=== PATIENT | female | born 1935 | race Caucasian/White ===

== ENCOUNTER 2017-04-04 09:32 | Inpatient (IN) | payer MEDICARE ==
[2017-04-04] MEDS ORDERED: HYDROMORPHONE HCL INJ/PF 2 MG/ML AMPULE IV ONE ×2 (10:23→12:01)
--- NOTE | 2017-04-04 11:35 | RADIOLOGY REPORT (SQ) ---
EXAM DESCRIPTION: CT PELVIS WITHOUT COMPLETED DATE/TIME: 04/04/2017 11:20 am REASON FOR STUDY: left hip pain and lumbar pain s.p fall COMPARISON: CT lumbar spine same date CT abdomen pelvis 05/13/2006 TECHNIQUE: CT scan of the pelvis performed without intravenous or oral contrast. Images reviewed wi th soft tissue and bone windows. Reconstructed coronal and sagittal MPR images reviewed. All images stored on PACS. All CT scanners at this facility use dose modulation, iterative reconstruction, and/or weight based d osing when appropriate to reduce radiation dose to as low as reasonably achievable (ALARA). [facility]: Dose Right [facility]: CareDose [facility]: Dose Right [facility]: Teradose 4D [facility]: [employer] RADIATION DOSE: CT Rad equipment meets quality standard of care and radiation dose reduction techniq ues were employed. CTDIvol: 21.9 mGy. DLP: 883 mGy-cm. mGy. LIMITATIONS: Streak artifact from right hip replacement FINDINGS: Bones are osteoporotic. On axial images 36 through 48, there are bilateral hairline nondisplaced fractures through the right and left sacral ala adjacent to the SI joints. These are also identified on coronal reconstruction i mage 68 and 69. No other pelvic fracture is identified. Old right hip replacement with old healed right intertrochanteric fracture. Incidental finding of fatty bilateral inguinal hernias, sigmoid diverticuli, and a normal size uterus with calcified fibroids. Streak artifact from right hip replacement. IMPRESSION: Bilateral acute nondisplaced hairline fractures through the right and left sacral ala, p aralleling the SI joints TECHNICAL DOCUMENTATION: JOB ID: [id number] Quality ID # [id number]: Final reports with documentation of one or more dose reduction techniques (e.g., Au tomated exposure control, adjustment of the mA and/or kV according to patient size, use of iterative reconstruction technique) 2010 [employer]- All Rights Reserved
--- NOTE | 2017-04-04 11:38 | RADIOLOGY REPORT (SQ) ---
EXAM DESCRIPTION: CT LUMBAR SPINE WITHOUT COMPLETED DATE/TIME: 04/04/2017 11:20 am REASON FOR STUDY: left hip pain and lumbar pain s.p fall COMPARISON: None. TECHNIQUE: Axial images acquired through the lumbar spine without intravenous contrast. Images revi ewed with lung, soft tissue and bone windows. Reconstructed coronal and sagittal MPR images reviewed . All images stored on PACS. All CT scanners at this facility use dose modulation, iterative reconstruction, and/or weight based d osing when appropriate to reduce radiation dose to as low as reasonably achievable (ALARA). [facility]: Dose Right [facility]: CareDose [facility]: Dose Right [facility]: Teradose 4D [facility]: [employer] RADIATION DOSE: 16 mGy. LIMITATIONS: None. FINDINGS: SEGMENTATION: Normal. No transitional anatomy. ALIGNMENT: Mild retrolisthesis of L2 over L3 VERTEBRAL BODIES: No fractures. No dislocation. No acute findings. DISCS: High-grade disc space loss of height at L1-2, L2-3, and L4-5 PEDICLES, TRANSVERSE PROCESSES: No fractures. No dislocation. No acute findings. FACETS, POSTERIOR ELEMENTS: No acute fracture. Multilevel facet arthropathy HARDWARE: None in the spine. VISUALIZED RIBS: No fractures. SOFT TISSUES: No significant or acute finding in adjacent soft tissues. OTHER: There are acute hairline nondisplaced fractures through the right and left sacral ala parallel ing the SI joints, the left fracture is best shown on coronal reconstruction image 34 series 602, the right fractures best shown on coronal reconstruction image 36 series 602. IMPRESSION: Bilateral nondisplaced sacral ala fractures. No acute fracture in the lumbar spine. Multilevel degenerative disc changes and facet arthropathy TECHNICAL DOCUMENTATION: JOB ID: [id number] Quality ID # [id number]: Final reports with documentation of one or more dose reduction techniques (e.g., Au tomated exposure control, adjustment of the mA and/or kV according to patient size, use of iterative reconstruction technique) 2010 [employer]- All Rights Reserved
--- NOTE | 2017-04-04 12:03 | ER Document Report ---
ED General - General Chief Complaint: Low Back Pain Stated Complaint: BACK PAIN Time Seen by Provider: 04/04/17 09:57 Mode of Arrival: Wheelchair Information source: Patient, Relative TRAVEL OUTSIDE OF THE [place] IN LAST 30 DAYS: No - HPI Notes: 81-year-old female presents today with complaints of acute lower back pain status post fall 1 week ago. Patient was seen by her primary care approximately 3 days ago, reports lumbar x-rays, right hip x-ray right knee x- ray was negative for any acute findings. Patient reports pain is 9 out of 10, sharp and aching. Tried [id number] ibuprofen. Was prescribed meloxicam, patient has not tried meloxicam at this time. Patient does ambulate at home with a walker. Patient did have a right hip replacement approximately 6 years ago patient does live alone. Denies fevers, chills, chest pain,palpitations, shortness of breath, dyspnea, nausea, vomiting, diarrhea, abdominal pain, hematuria,blurred vision, double vision, loss of vision, speech changes, LH, dizziness, syncope, headaches, wheezing, ST, URI, neck pain, weakness, bowel or bladder dysfunction, saddle anesthesia, numbness or tingling in bilateral upper or lower extremities equally, muscle paralysis, weakness in bilateral upper or lower extremities equally or rash. Denies IV drug use. Past Medical History - General Information source: Patient, Relative - daughter - Social History Smoking Status: Former Smoker Chew tobacco use (# tins/day): No Drug Abuse: None Family History: Reviewed & Not Pertinent Patient has suicidal ideation: No Patient has homicidal ideation: No Renal/ Medical History: Denies: Hx Peritoneal Dialysis Review of Systems - Review of Systems Constitutional: No symptoms reported EENT: No symptoms reported Cardiovascular: No symptoms reported Respiratory: No symptoms reported Gastrointestinal: No symptoms reported Genitourinary: No symptoms reported Female Genitourinary: No symptoms reported Musculoskeletal: See HPI Skin: No symptoms reported Hematologic/Lymphatic: No symptoms reported Neurological/Psychological: No symptoms reported Physical Exam - Vital signs Vitals: Temp Pulse Resp BP Pulse Ox 97.8 F 55 L 18 149/63 H 98 04/04/17 09:46 04/04/17 09:46 04/04/17 09:46 04/04/17 09:46 04/04/17 09:46 - Notes Notes: PHYSICAL EXAMINATION: GENERAL: Well-appearing, well-nourished and in no acute distress. HEAD: Atraumatic, normocephalic. EYES: Pupils equal round and reactive to light, extraocular movements intact, conjunctiva are normal. ENT: Nares patent, oropharynx clear without exudates. Moist mucous membranes. NECK: Normal range of motion, supple without lymphadenopathy LUNGS: Breath sounds clear to auscultation bilaterally and equal. No wheezes rales or rhonchi. HEART: Regular rate and rhythm without murmurs ABDOMEN: Soft, nontender, nondistended abdomen. No guarding, no rebound. No masses appreciated. Female : deferred Musculoskeletal: Normal range of motion, no pitting or edema. No cyanosis.Pain with flexion and extension at 20 degrees bilaterally. positive straight leg test. Noted pain with right hip Abduction, flexion. No pain with extension or abduction. Left hip with full APROM. DTR +2 in BLE equally. Strength 5 out of 5 both distally and proximally to bilateral lower extremities normal motor and sensory function in BLE equally. Distal pulses + 2 BLE equally. Noted paraspinal tenderness near L2 and L3. No spinal tenderness. No CVA tenderness bilaterally. Femoral pulses + 2 bilaterally and equally. No abrasions, scars, lacerations, ecchymosis of any recent trauma. NEUROLOGICAL: Cranial nerves grossly intact. Normal speech, normal gait. Normal sensory, motor exams PSYCH: Normal mood, normal affect. SKIN: Warm, Dry, normal turgor, no rashes or lesions noted. Course - Re-evaluation Re-evalutation: Consulted with hospitalist Dr. Manjinder Khan, regarding CT lumbar spine and pelvis showing a bilateral hairline sacral fractures that are nondisplaced. Patient lives alone, and is having uncontrolled pain. Will admit for pain control to the medical floor.. Informed patient and daughter that she is going to be admitted for pain control as well as obtaining services such as PT. Pain pain medication has reduced pain down to a 3 out of 10. All questions and concerns were answered by this provider. After performing a Medical Screening Examination, I estimate there is LOW risk for EXPANDING OR RUPTURED ABDOMINAL AORTIC ANEURYSM, CAUDA EQUINA SYNDROME, EPIDURAL MASS ABSCESS OR LESION(S), OSTEOMYELITIS,PERSONAL HISTORY OF CANCER, IMMUNOSUPPERSSSION, HISTORY OF IV DRUG USE, FRACTURE, CORD COMPERSSION, CANCER, RETROPERITONEAL BLEED, SPINAL EPIDURAL HEMATOMA, or HERNIATED DISK CAUSING SEVERE SPINAL STENOSIS, thus I consider the discharge disposition reasonable. I have reevaluated this patient multiple times and no significant life threatening changes are noted. The patient and I have discussed the diagnosis and risks, and we agree with discharging home and close follow-up. We also discussed returning to the Emergency Department immediately if new or worsening symptoms occur with the understanding that symptoms and presentations can change. We have discussed the symptoms which are most concerning (e.g., saddle anesthesia, urinary or bowel incontinence or retention, changing or worsening pain) that necessitate immediate return. - Vital Signs Vital signs: Temp Pulse Resp BP Pulse Ox 97.8 F 55 L 18 149/63 H 98 04/04/17 09:46 04/04/17 09:46 04/04/17 09:47 04/04/17 09:46 04/04/17 09:46 Discharge - Discharge Clinical Impression: Bilateral sacral fractures Condition: Good Disposition: ADMITTED INPATIENT Admitting Provider: Hospitalist - Dr. Cassidy Gamboa Unit Admitted: Medical Floor Referrals: RUBI BURNETT FNP [Primary Care Provider] - Follow up as needed
[2017-04-04] MEDS ORDERED: ONDANSETRON HCL INJ/PF 4 MG/2 ML SDV IV PRN (13:06)
[2017-04-04] MEDS ORDERED: IPRATROPIUM/ALBUTEROL 0.5-2.5 MG/3 ML AMPUL NEB PRN (13:06)
[2017-04-04] MEDS ORDERED: HYDROMORPHONE HCL INJ/PF 2 MG/ML AMPULE IV PRN (13:13)
--- NOTE | 2017-04-04 13:33 | PDOC H&P ---
History of Present Illness Admission Date/PCP: DARYL NELSON Patient complains of: Worsening hip pain with inability to walk. History of Present Illness: DEVAN ANGUIANO is a 81 year old female. She fell last . She was walking without using her walker. She was turning the corner at the end of her bed and she fell. She states that she just lost her balance. She did have trouble getting up. She does wear a button, but did not have this on her. Her caregiver arrived but the caregiver did not alert the family to what happened. On Friday morning the patient called her daughter asking for a hot water bottle. The daughter noted that she was struggling to walk. The daughter took her mother to see her primary family member caretaker on Friday. X-rays were negative for fracture. The nurse practitioner ordered tramadol. This was rejected by the insurance company. The next prescription given was Mobic. They have obtained the medication but they have not started this as of yet. The patient was self prescribing Advil over the week at 200 mg as needed. In the emergency department she received Dilaudid 2 doses with good relief of pain. She has not been able to ambulate. Past Medical History Past Medical History: Hypertension EENT Medical History: Reports: Cataracts Endocrine Medical History: Reports: Hypothyroidism Psychiatric Medical History: Reports: Bipolar Disorder, Depression Past Surgical History Past Surgical History: Reports: Carotid Endarterectomy, Orthopedic Surgery Social History Smoking Status: Former Smoker Frequency of Alcohol Use: Occasional Hx Recreational Drug Use: No Drugs: None Hx Prescription Drug Abuse: No - Advance Directive Resuscitation Status: Do Not Resuscitate Surrogate healthcare decision maker:: The patient's daughterWendy is her surrogate decision maker and healthcare power of senior trial attorney. She can be reached at [phone]. Family History Family History: Reviewed & Not Pertinent Family History: The patient is unable to tell me much better family history. Her father was an alcoholic. Her mother was a heavy smoker. She did not seek medical attention. She was found one morning in her chair. She feels that she has 1 brother that has a history of coronary artery disease and had a stent placed. Parental Family History Reviewed: Yes - The patient does not remember much about her family history. Her father di Children Family History Reviewed: Yes Sibling(s) Family History Reviewed.: Yes Medication/Allergy Home Medications: Aripiprazole [Abilify 5 mg Tablet] 5 mg PO QHS 04/04/17 Aspirin [Aspirin EC] 81 mg PO QHS 04/04/17 Atorvastatin Calcium [Lipitor 20 mg Tablet] 20 mg PO QHS 04/04/17 Brimonidine Tartrate [Alphagan P] 1 drop OU Q12 04/04/17 Cholecalciferol (Vitamin D3) [Vitamin D3 1000 Unit Tablet] 1,000 unit PO QHS Desvenlafaxine Succinate [Pristiq ER] 50 mg PO DAILY 04/04/17 Docusate Sodium [Colace 100 mg Capsule] 100 mg PO Q12 04/04/17 Indacaterol Maleate [Arcapta Neohaler] 1 puff IH DAILY 04/04/17 Levothyroxine Sodium [Synthroid 0.075 mg Tablet] 0.075 mg PO Q6AM 04/04/17 Losartan Potassium [Cozaar 100 mg Tablet] 100 mg PO DAILY 04/04/17 Mirtazapine [Remeron] 30 mg PO QHS 04/04/17 Omeprazole 20 mg PO Q6AM 04/04/17 Allergies/Adverse Reactions: celecoxib [From Celebrex] Adverse Reaction (Verified 04/04/17 13:27) Review of Systems Constitutional: ABSENT: as per HPI, anorexia, chills, fatigue, fever(s), headache(s), night sweats, weakness, weight gain, weight loss, other Eyes: ABSENT: as per HPI, visual disturbances, other Ears: ABSENT: as per HPI, hearing changes, other Nose, Mouth, and Throat: ABSENT: as per HPI, headache(s), mouth pain, sore throat, vertigo, other Breasts: ABSENT: as per HPI, other Cardiovascular: ABSENT: as per HPI, chest pain, dyspnea on exertion, edema, orthropnea, palpitations, other Respiratory: ABSENT: as per HPI, cough, dyspnea, hemoptysis, sputum, other Gastrointestinal: ABSENT: as per HPI, abdominal pain, bloating, coffee ground emesis, constipation, diarrhea, dysphagia, heartburn, hematemesis, hematochezia , melena, nausea, vomiting, other Musculoskeletal: PRESENT: as per HPI Integumentary: ABSENT: as per HPI, diaphoresis, erythema, lesions, pruritus, rash, wounds, other Neurological: ABSENT: as per HPI, abnormal gait, abnormal movements, abnormal speech, confusion, convulsions, dizziness, focal weakness, frequent falls, lack of coordination, memory loss, numbness, paresthesias, restless legs, syncope, tingling, tremor(s), vertigo, weakness, other Psychiatric: ABSENT: as per HPI, anxiety, depression, hallucinations, homidical ideation, suicidal ideation, other Endocrine: ABSENT: as per HPI, cold intolerance, flushing, heat intolerance, menstrual abnormalities, polydipsia, polyphagia, polyuria, other Hematologic/Lymphatic: ABSENT: as per HPI, easy bleeding, easy bruising, lymphadenopathy, other Allergic/Immunologic: ABSENT: as per HPI, seasonal rhinorrhea, other Physical Exam Vital Signs: Temp Pulse Resp BP Pulse Ox 97.8 F 55 L 18 149/63 H 98 04/04/17 09:46 04/04/17 09:46 04/04/17 09:47 04/04/17 09:46 04/04/17 09:46 Additional comments: The patient was lying in bed. She was awake. She did remember most of the history, although, her daughter also described a lot of the history. The patient's cognition appears to be intact. Her facial appearance is normal. Cranial nerves II through XII are intact. The patient is wearing dentures but otherwise her oropharynx is benign. Her lungs are clear to auscultation bilaterally. Her cardiac exam is regular without murmurs, gallops or rubs. The abdomen is soft and flat. Bowel sounds are present at L4 quadrants. She does not have guarding or rebound noted and there are no hernias or masses present. The lower extremities are warm to touch without edema. The skin is warm, dry and intact without lesions or rashes. She does have some bruising and purpura on the right forearm. This occurred last week. He has pain over the right greater trochanter and in the right groin with palpation. She is able to move all 4 extremities. She states that since she received the pain medication in the emergency department she is now able to lift her right leg off of the bed. Results Impressions: Lumbar Spine CT 04/04/17 10:22 IMPRESSION: Bilateral nondisplaced sacral ala fractures. No acute fracture in the lumbar spine. Multilevel degenerative disc changes and facet arthropathy Pelvis CT 04/04/17 10:22 IMPRESSION: Bilateral acute nondisplaced hairline fractures through the right and left sacral ala, paralleling the SI joints Assessment & Plan - Diagnosis (1) Sacral fracture Is this a current diagnosis for this admission?: Yes Plan: Patient has a non-displaced by lateral sacral monica fractures. We will initiate oral pain medications and NSAIDS. If needed, the patient will be given Dilaudid for breakthrough pain. Physical therapy will be consulted. I have also consulted discharge planning to determine if it would benefit the patient to go to a subacute rehab facility. (2) Bipolar depression Is this a current diagnosis for this admission?: Yes Plan: We will continue the patient's psychiatric medications. (3) Hypothyroidism Is this a current diagnosis for this admission?: Yes Plan: Continue supplementation with levothyroxine. (4) Hypertension Is this a current diagnosis for this admission?: Yes Plan: Continue losartan - Time Time Spent: 30 to 50 Minutes - Inpatient Certification Medical Necessity: Failure to Improve With Outpatient Therapy, Need for Pain Control
[2017-04-04] MEDS: ATORVASTATIN CALCIUM 20 MG TABLET PO SCH (21:13)
[2017-04-04] MEDS: ASPIRIN 81 MG TABLET, ENT COATED PO SCH (21:13)
[2017-04-04] MEDS: DOCUSATE SODIUM 100 MG CAPSULE PO SCH (21:13)
[2017-04-04] MEDS: CHOLECALCIFEROL (D3) 1,000 UNIT TABLET PO SCH (21:13)
[2017-04-04] MEDS: MIRTAZAPINE 15 MG TABLET PO SCH (21:14)
[2017-04-04] MEDS: ARIPIPRAZOLE 5 MG TABLET PO SCH (21:14)
[2017-04-04] MEDS ORDERED: (PENDING PHARMACY ID) (Brimonidine Tartrate [Alphagan P] 1 DROP) OU SCH (22:00)
[2017-04-05] MEDS: LEVOTHYROXINE SODIUM 0.075 MG TABLET PO SCH (05:10)
[2017-04-05] MEDS: LANSOPRAZOLE 15 MG TAB.RAP.DR PO SCH (05:10)
[2017-04-05] MEDS: OXYCODONE-ACETAMINOPHEN 5-325 MG TABLET PO PRN ×3 (08:16→23:28)
[2017-04-05] MEDS ORDERED: [UNRECOGNIZED DRUG - OTHER] IH SCH (10:00)
[2017-04-05] MEDS ORDERED: (PENDING PHARMACY ID) (Desvenlafaxine Succinate [Pristiq] 50 MG) PO SCH (10:00)
[2017-04-05] MEDS: LOSARTAN POTASSIUM 50 MG TABLET PO SCH (10:51)
[2017-04-05] MEDS: DOCUSATE SODIUM 100 MG CAPSULE PO SCH ×2 (10:52→21:39)
--- NOTE | 2017-04-05 13:23 | PDOC PROGRESS REPORT ---
Subjective Progress Note for:: 04/05/17 Subjective:: The patient is admitted for pain management of bilateral sacral ala fractures. She continues to have severe pain at this time and is unable to ambulate. Physical therapy consultation is pending. Reason For Visit: SACRAL FRACTURES Physical Exam Vital Signs: Temp Pulse Resp BP Pulse Ox 98.1 F 49 L 18 112/44 L 95 04/05/17 11:08 04/05/17 11:08 04/05/17 11:08 04/05/17 11:08 04/05/17 11:08 Intake & Output 04/04/17 04/05/17 04/06/17 06:59 06:59 06:59 Intake Total 370 Balance 370 Weight 71.7 kg Additional comments: The patient did not appear to be in any pain or distress when I went to see her this morning. Her cognition and mentation appear to be appropriate. Her facial appearance is unremarkable. Her lungs are noted to be clear to auscultation bilaterally. Her cardiac exam is regular without murmurs, gallops or rubs. The abdomen is soft and flat. Bowel sounds are present in the lower quadrants and she does not have any guarding or rebound. The lower extremities are without edema. The feet are warm to touch. Patient is able to move all 4 extremities. Results Impressions: Lumbar Spine CT 04/04/17 10:22 IMPRESSION: Bilateral nondisplaced sacral ala fractures. No acute fracture in the lumbar spine. Multilevel degenerative disc changes and facet arthropathy Pelvis CT 04/04/17 10:22 IMPRESSION: Bilateral acute nondisplaced hairline fractures through the right and left sacral ala, paralleling the SI joints Assessment & Plan - Diagnosis (1) Sacral fracture Is this a current diagnosis for this admission?: Yes Plan: Patient has a non-displaced by lateral sacral monica fractures. We will initiate oral pain medications and NSAIDS. Discontinued IV Dilaudid today. Physical therapy has been consulted. I have also consulted discharge planning to determine if it would benefit the patient to go to a subacute rehab facility. (2) Bipolar depression Is this a current diagnosis for this admission?: Yes Plan: We will continue the patient's psychiatric medications. (3) Hypothyroidism Is this a current diagnosis for this admission?: Yes Plan: Continue supplementation with levothyroxine. (4) Hypertension Is this a current diagnosis for this admission?: Yes Plan: Continue losartan - Time Time Spent with patient: 15-24 minutes - Inpatient Certification Medical Necessity: Need for Pain Control
[2017-04-05] MEDS: ARIPIPRAZOLE 5 MG TABLET PO SCH (21:39)
[2017-04-05] MEDS: ASPIRIN 81 MG TABLET, ENT COATED PO SCH (21:39)
[2017-04-05] MEDS: ATORVASTATIN CALCIUM 20 MG TABLET PO SCH (21:39)
[2017-04-05] MEDS: MIRTAZAPINE 15 MG TABLET PO SCH (21:39)
[2017-04-05] MEDS: CHOLECALCIFEROL (D3) 1,000 UNIT TABLET PO SCH (21:39)
[2017-04-06] MEDS: LEVOTHYROXINE SODIUM 0.075 MG TABLET PO SCH (05:53)
[2017-04-06] MEDS: OXYCODONE-ACETAMINOPHEN 5-325 MG TABLET PO PRN ×3 (05:53→18:55)
[2017-04-06] MEDS: LANSOPRAZOLE 15 MG TAB.RAP.DR PO SCH (05:53)
[2017-04-06] MEDS: LOSARTAN POTASSIUM 50 MG TABLET PO SCH (10:43)
[2017-04-06] MEDS: DOCUSATE SODIUM 100 MG CAPSULE PO SCH ×2 (10:46→21:30)
[2017-04-06] MEDS ORDERED: BISACODYL 5 MG TABEC PO ONE (12:30)
--- NOTE | 2017-04-06 15:52 | PDOC PROGRESS REPORT ---
Subjective Progress Note for:: 04/06/17 Subjective:: The patient is admitted for pain management of bilateral sacral ala fractures. Patient states that her pain is under somewhat better control when compared to yesterday. She told me that physical therapy has not yet been into see her. However, the nurses told me that physical therapy has been by. She has been refusing to get out of bed due to pain. However, she did walk with the nurses yesterday almost to the doorway. She does agree to go to a skilled facility upon discharge. Reason For Visit: SACRAL FRACTURES Physical Exam Vital Signs: Temp Pulse Resp BP Pulse Ox 97.7 F 53 L 12 144/51 H 95 04/06/17 11:26 04/06/17 11:26 04/06/17 11:26 04/06/17 11:26 04/06/17 11:26 Intake & Output 04/05/17 04/06/17 04/07/17 06:59 06:59 06:59 Intake Total 370 1660 Balance 370 1660 Weight 71.7 kg 72.5 kg Additional comments: The patient is lying in bed. She does not appear to be in pain whatsoever. Her facial appearance is unremarkable. Her lungs remain clear to auscultation bilaterally. Her cardiac exam is regular without murmurs, gallops or rubs. The abdomen is soft, flat and benign. Bowel sounds are present in the lower quadrants. The lower extremities are warm to touch without pitting edema. The skin is clean, warm, dry and intact without lesions or rashes. The patient is able to wiggle the toes of both of her feet. She is able to lift her legs off of the bed. Results Impressions: Lumbar Spine CT 04/04/17 10:22 IMPRESSION: Bilateral nondisplaced sacral ala fractures. No acute fracture in the lumbar spine. Multilevel degenerative disc changes and facet arthropathy Pelvis CT 04/04/17 10:22 IMPRESSION: Bilateral acute nondisplaced hairline fractures through the right and left sacral ala, paralleling the SI joints Assessment & Plan - Diagnosis (1) Sacral fracture Is this a current diagnosis for this admission?: Yes Plan: Patient has a non-displaced by lateral sacral monica fractures. We will initiate oral pain medications and NSAIDS. Discontinued IV Dilaudid yesterday. Physical therapy has been consulted. Continue with plans for placement to skilled facility for short-term rehab. (2) Bipolar depression Is this a current diagnosis for this admission?: Yes Plan: We will continue the patient's psychiatric medications. (3) Hypothyroidism Is this a current diagnosis for this admission?: Yes Plan: Continue supplementation with levothyroxine. (4) Hypertension Is this a current diagnosis for this admission?: Yes Plan: Continue losartan - Time Time Spent with patient: 15-24 minutes - Inpatient Certification Medical Necessity: Need for Pain Control
[2017-04-06] MEDS: BISACODYL 10 MG SUPP.RECT PR PRN (17:08)
[2017-04-06] MEDS: ASPIRIN 81 MG TABLET, ENT COATED PO SCH (21:30)
[2017-04-06] MEDS: ARIPIPRAZOLE 5 MG TABLET PO SCH (21:30)
[2017-04-06] MEDS: CHOLECALCIFEROL (D3) 1,000 UNIT TABLET PO SCH (21:30)
[2017-04-06] MEDS: MIRTAZAPINE 15 MG TABLET PO SCH (21:30)
[2017-04-06] MEDS: ATORVASTATIN CALCIUM 20 MG TABLET PO SCH (21:30)
[2017-04-07] MEDS: OXYCODONE-ACETAMINOPHEN 5-325 MG TABLET PO PRN ×3 (00:35→19:47)
[2017-04-07] MEDS: LANSOPRAZOLE 15 MG TAB.RAP.DR PO SCH (06:13)
[2017-04-07] MEDS: LEVOTHYROXINE SODIUM 0.075 MG TABLET PO SCH (06:13)
[2017-04-07] MEDS: LOSARTAN POTASSIUM 50 MG TABLET PO SCH (10:20)
[2017-04-07] MEDS: DOCUSATE SODIUM 100 MG CAPSULE PO SCH ×2 (10:20→21:35)
[2017-04-07] MEDS: BISACODYL 10 MG SUPP.RECT PR PRN (10:21)
[2017-04-07] MEDS ORDERED: HYDRALAZINE HCL INJ/PF 20 MG/1 ML SDV IV PRN ×2 (13:11→15:00)
--- NOTE | 2017-04-07 13:18 | PDOC PROGRESS REPORT ---
Subjective Progress Note for:: 04/07/17 Subjective:: The patient is admitted for pain management of bilateral sacral ala fractures. Today, she states that her pain is under better control. Yesterday, she was constipated. After receiving a Dulcolax suppository she did have a large bowel movement and feels better. Physical therapy is working with the patient. The patient is still unable to ambulate and the plan will be for discharge to short- term rehabilitation. Reason For Visit: BILATERAL SACRAL FRACTURES Physical Exam Vital Signs: Temp Pulse Resp BP Pulse Ox 98.6 F 71 18 172/65 H 94 04/07/17 08:39 04/07/17 08:39 04/07/17 08:39 04/07/17 08:39 04/07/17 08:39 Intake & Output 04/06/17 04/07/17 04/08/17 06:59 06:59 06:59 Intake Total 1660 985 Balance 1660 985 Weight 72.5 kg 71.9 kg Additional comments: The patient appeared to be doing well this morning. She appeared to be quite comfortable. She was smiling and in no distress. Her facial appearance is unremarkable. Her lungs are noted to be clear to auscultation bilaterally. Her cardiac exam is regular without murmurs, gallops or rubs. The abdomen is soft, flat and benign and less distended than yesterday. The lower extremities are warm to touch. She does not have any edema. She can move both of her feet. The skin is warm, dry and intact without lesions or rashes. Results Impressions: Lumbar Spine CT 04/04/17 10:22 IMPRESSION: Bilateral nondisplaced sacral ala fractures. No acute fracture in the lumbar spine. Multilevel degenerative disc changes and facet arthropathy Pelvis CT 04/04/17 10:22 IMPRESSION: Bilateral acute nondisplaced hairline fractures through the right and left sacral ala, paralleling the SI joints Assessment & Plan - Diagnosis (1) Sacral fracture Is this a current diagnosis for this admission?: Yes Plan: Patient has non-displaced bilateral sacral ala fractures. Continue oral narcotics and nonsteroidal anti-inflammatory drugs. Continue with plans for placement to skilled facility for short-term rehab. (2) Bipolar depression Is this a current diagnosis for this admission?: Yes Plan: We will continue the patient's psychiatric medications. (3) Hypothyroidism Is this a current diagnosis for this admission?: Yes Plan: Continue supplementation with levothyroxine. (4) Hypertension Is this a current diagnosis for this admission?: Yes Plan: Continue losartan. The patient has had some readings for systolic blood pressures 160-170. This could be in relation to pain. She is written for as needed IV hydralazine. (5) Constipation Is this a current diagnosis for this admission?: Yes Plan: This is likely related to opioids. Continue stool softener and Dulcolax. - Time Time Spent with patient: 15-24 minutes - Inpatient Certification Medical Necessity: Need for Pain Control - Plan Summary Plan Summary: We are working on placement to short-term rehabilitation.
[2017-04-07 15:00] LABS: HEMATOCRIT 36.9 % (36.0-47.0); HEMOGLOBIN 12.7 g/dL (12.0-15.5); MEAN CORPUSCULAR HEMOGLOBIN 31.4 pg (27.0-33.4); MEAN CORPUSCULAR HGB CONC 34.3 g/dL (32.0-36.0); MEAN CORPUSCULAR VOLUME 92 fl (80-97); PLATELET COUNT 260 10^3/uL (150-450); RED BLOOD COUNT 4.03 10^6/uL (3.72-5.28); WHITE BLOOD COUNT 13.5 10^3/uL (4.0-10.5)
[2017-04-07 15:15] LABS: ANION GAP 9 (5-19); BLOOD UREA NITROGEN 18 mg/dL (7-20); CALCIUM 8.8 mg/dL (8.4-10.2); CARBON DIOXIDE 24 mmol/L (22-30); CHLORIDE 104 mmol/L (98-107); GLUCOSE 134 mg/dL (75-110); POTASSIUM 4.2 mmol/L (3.6-5.0); SODIUM 136.5 mmol/L (137-145)
[2017-04-07] MEDS ORDERED: ONDANSETRON HCL INJ/PF 4 MG/2 ML SDV IV PRN (15:30)
--- NOTE | 2017-04-07 16:35 | Progress Note ---
Provider Note Provider Note: Labs are checked today due to the fact that I was concerned that the patient's transfer to rehab could be delayed and I was going to start Lovenox. She does have mild leukocytosis. She is now complaining of some burning with urination. Therefore, urinalysis with culture has been sent. Patient is stable. I will hold antibiotics waiting for results.
[2017-04-07 17:48] LABS: APPEARANCE,URINE CLEAR; BILIRUBIN,URINE NEGATIVE (NEGATIVE); COLOR,URINE YELLOW; GLUCOSE, URINE NEGATIVE (NEGATIVE); KETONES,URINE NEGATIVE (NEGATIVE); LEUKOCYTE ESTERASE,URINE NEGATIVE (NEGATIVE); NITRITE,URINE NEGATIVE (NEGATIVE); PROTEIN,URINE NEGATIVE (NEGATIVE); URINE SPECIFIC GRAVITY 1.009
[2017-04-07] MEDS ORDERED: NYSTATIN CREAM 15 GM TP ONE (18:00)
[2017-04-07] MEDS: CHOLECALCIFEROL (D3) 1,000 UNIT TABLET PO SCH (21:35)
[2017-04-07] MEDS: ARIPIPRAZOLE 5 MG TABLET PO SCH (21:35)
[2017-04-07] MEDS: ATORVASTATIN CALCIUM 20 MG TABLET PO SCH (21:35)
[2017-04-07] MEDS: MIRTAZAPINE 15 MG TABLET PO SCH (21:35)
[2017-04-07] MEDS: ASPIRIN 81 MG TABLET, ENT COATED PO SCH (21:35)
[2017-04-08] MEDS: OXYCODONE-ACETAMINOPHEN 5-325 MG TABLET PO PRN ×2 (05:10→12:06)
[2017-04-08] MEDS: LEVOTHYROXINE SODIUM 0.075 MG TABLET PO SCH (05:11)
[2017-04-08] MEDS: LANSOPRAZOLE 15 MG TAB.RAP.DR PO SCH (05:11)
[2017-04-08] MEDS: DOCUSATE SODIUM 100 MG CAPSULE PO SCH (09:24)
[2017-04-08] MEDS: LOSARTAN POTASSIUM 50 MG TABLET PO SCH (09:24)
[2017-04-08] MEDS ORDERED: BISACODYL 5 MG TABEC PO SCH (10:00)
[2017-04-08] MEDS ORDERED: NYSTATIN CREAM 15 GM TP SCH (10:00)
--- NOTE | 2017-04-08 10:58 | PDOC TRANSFER SUMMARY ---
General - Admit/Disc Date/PCP Admission Date/Primary Care Provider: 04/04/17 14:53 RUBI MO HORTENCIA, BILINGUAL RESEARCH INTERVIEWER Discharge Date: 04/08/17 - Discharge Diagnosis (1) Sacral fracture Is this a current diagnosis for this admission?: Yes Summary: She will need to need physical therapy and nursing care as she lives alone. She be transferred to [facility] for further rehab. She can take as needed Motrin and Percocet for pain (2) Constipation Is this a current diagnosis for this admission?: Yes Summary: Continue bowel regimen (3) Hypertension Is this a current diagnosis for this admission?: Yes Summary: Continue current medication she is normotensive. (4) Hypothyroidism Is this a current diagnosis for this admission?: Yes Summary: Continue Synthroid (5) Bipolar depression Is this a current diagnosis for this admission?: Yes Summary: Continue home medications - Additional Information Resuscitation Status: Do Not Resuscitate Discharge Diet: Cardiac Discharge Activity: Activity As Tolerated, Balance Activity w/Rest, Supervised Activity Prescriptions: Oxycodone HCl/Acetaminophen [Percocet 5-325 mg Tablet] 1 tab PO Q6HP PRN #30 tablet PRN Reason: Ibuprofen [Motrin 600 mg Tablet] 600 mg PO Q8HP PRN #90 tablet PRN Reason: Home Medications: Aripiprazole [Abilify 5 mg Tablet] 5 mg PO QHS 04/04/17 Aspirin [Aspirin EC] 81 mg PO QHS 04/04/17 Atorvastatin Calcium [Lipitor 20 mg Tablet] 20 mg PO QHS 04/04/17 Brimonidine Tartrate [Alphagan P] 1 drop OU Q12 04/04/17 Cholecalciferol (Vitamin D3) [Vitamin D3 1000 Unit Tablet] 1,000 unit PO QHS Desvenlafaxine Succinate [Pristiq] 50 mg PO DAILY 04/04/17 Docusate Sodium [Colace 100 mg Capsule] 100 mg PO Q12 04/04/17 Indacaterol Maleate [Arcapta Neohaler] 1 puff IH DAILY 04/04/17 Levothyroxine Sodium [Synthroid 0.075 mg Tablet] 0.075 mg PO Q6AM 04/04/17 Losartan Potassium [Cozaar 100 mg Tablet] 100 mg PO DAILY 04/04/17 Mirtazapine [Remeron] 30 mg PO QHS 04/04/17 Omeprazole 20 mg PO Q6AM 04/04/17 Bisacodyl [Dulcolax 10 mg Supp.rect] 10 mg MT DAILYP PRN supp.rect 04/08/17 Bisacodyl [Dulcolax 5 mg Tablet] 10 mg PO DAILY tabec 04/08/17 Ibuprofen [Motrin 600 mg Tablet] 600 mg PO Q8HP PRN #90 tablet 04/08/17 Nystatin [Mycostatin Cream 15 gm] 1 applic TP Q12 tube 04/08/17 Oxycodone HCl/Acetaminophen [Percocet 5-325 mg Tablet] 1 tab PO Q6HP PRN #30 tablet 04/08/17 History of Present Illness Admission Date/PCP: 04/04/17 14:53 DARYL NELSON Patient complains of: Severe low back pain and difficulty walking after fall History of Present Illness: DEVAN ANGUIANO is a 81 year old female. She fell last . She was walking without using her walker. She was turning the corner at the end of her bed and she fell. She states that she just lost her balance. She did have trouble getting up. She does wear a button, but did not have this on her. Her caregiver arrived but the caregiver did not alert the family to what happened. On Friday morning the patient called her daughter asking for a hot water bottle. The daughter noted that she was struggling to walk. The daughter took her mother to see her primary child care center assistant director on Friday. X-rays were negative for fracture. The nurse practitioner ordered tramadol. This was rejected by the insurance company. The next prescription given was Mobic. They have obtained the medication but they have not started this as of yet. The patient was self prescribing Advil over the week at 200 mg as needed. In the emergency department she received Dilaudid 2 doses with good relief of pain. She has not been able to ambulate. Hospital Course Hospital Course: She was admitted to the medical floor on the hospitalist service. She was given as needed analgesics for pain. Physical therapy was consulted for mobility. Once her pain was better controlled she was able to participate in therapy. She was slow to progress. She had problems with constipation as well. She was given a Dulcolax suppository yesterday with good results. She will need to have stool softeners daily and as needed laxatives while she is taking the narcotic analgesics. He had some burning on urination yesterday urine was sent for culture which is negative. She feels ready for discharge to rehab at this point. She will be discharged to [facility] for further physical therapy and nursing care Physical Exam Vital Signs: Temp Pulse Resp BP Pulse Ox 97.8 F 56 L 18 109/53 L 96 04/08/17 08:00 04/08/17 08:00 04/08/17 08:00 04/08/17 08:00 04/08/17 08:00 Intake & Output 04/07/17 04/08/17 04/09/17 06:59 06:59 06:59 Intake Total 985 990 Balance 985 990 Weight 71.9 kg 71.7 kg General appearance: PRESENT: no acute distress, well-developed, well-nourished Head exam: PRESENT: atraumatic, normocephalic Eye exam: PRESENT: conjunctiva pink, EOMI, PERRLA. ABSENT: scleral icterus Ear exam: PRESENT: normal external ear exam Mouth exam: PRESENT: moist, tongue midline Neck exam: ABSENT: carotid bruit, JVD, lymphadenopathy, thyromegaly Respiratory exam: PRESENT: clear to auscultation tariq. ABSENT: rales, rhonchi, wheezes Cardiovascular exam: PRESENT: RRR. ABSENT: diastolic murmur, rubs, systolic murmur Pulses: PRESENT: normal dorsalis pedis pul Vascular exam: PRESENT: normal capillary refill GI/Abdominal exam: PRESENT: normal bowel sounds, soft. ABSENT: distended, guarding, mass, organolmegaly, rebound, tenderness Rectal exam: PRESENT: deferred Extremities exam: PRESENT: full ROM. ABSENT: calf tenderness, clubbing, pedal edema Musculoskeletal exam: PRESENT: ambulatory, full ROM - low back, tenderness Neurological exam: PRESENT: alert, awake, oriented to person, oriented to place , oriented to time, oriented to situation, CN II-XII grossly intact. ABSENT: motor sensory deficit Psychiatric exam: PRESENT: appropriate affect, normal mood. ABSENT: homicidal ideation, suicidal ideation Skin exam: PRESENT: dry, intact, warm. ABSENT: cyanosis, rash Results Laboratory Results: 04/07/17 14:46 04/07/17 14:46 04/07/17 04/07/17 04/07/17 14:46 14:46 16:50 WBC 13.5 H RBC 4.03 Hgb 12.7 Hct 36.9 MCV 92 MCH 31.4 MCHC 34.3 RDW 14.0 Plt Count 260 Sodium 136.5 L Potassium 4.2 Chloride 104 Carbon Dioxide 24 Anion Gap 9 BUN 18 Creatinine 0.65 Est GFR ( Amer) > 60 Est GFR (Non-Af Amer) > 60 Glucose 134 H Calcium 8.8 Urine Color YELLOW Urine Appearance CLEAR Urine pH 6.0 Ur Specific [place] 1.009 Urine Protein NEGATIVE Urine Glucose (UA) NEGATIVE Urine Ketones NEGATIVE Urine Blood NEGATIVE Urine Nitrite NEGATIVE Ur Leukocyte Esterase NEGATIVE Urine WBC (Auto) 0 Urine RBC (Auto) 0 Impressions: Lumbar Spine CT 04/04/17 10:22 IMPRESSION: Bilateral nondisplaced sacral ala fractures. No acute fracture in the lumbar spine. Multilevel degenerative disc changes and facet arthropathy Pelvis CT 04/04/17 10:22 IMPRESSION: Bilateral acute nondisplaced hairline fractures through the right and left sacral ala, paralleling the SI joints Transfer Plan - Disposition Transfer Plan: [facility] for further physical therapy - Time Spent with Patient Time spent with patient: Less than 30 Minutes Qualifiers - * PATEINT BEING DISCHARGED WITH ANY OF THE FOLLOWING DIAGNOSIS?: No
[2017-04-08 12:20] VITALS: BP 128/60
== END 2017-04-08 12:26 | DRG 552 ==
LOC: ER 09:32 → INTOOBSV 13:45 → EH 13:45 → OBSVTOIN 14:53 → 5 17:44
PROVIDERS: ADMIT Emergency Medicine; ATTEND Emergency Medicine
DX: S32.19XA Other fracture of sacrum, initial encounter for closed fracture (principal); G89.11 Acute pain due to trauma; W18.30XA Fall on same level, unspecified, initial encounter; Y92.003 Bedroom of unspecified non-institutional (private) residence as the place of occurrence of the external cause; K59.00 Constipation, unspecified; I10 Essential (primary) hypertension; E03.9 Hypothyroidism, unspecified; S50.11XA Contusion of right forearm, initial encounter; Z66 Do not resuscitate; F31.9 Bipolar disorder, unspecified; Z96.641 Presence of right artificial hip joint; Z88.8 Allergy status to other drugs, medicaments and biological substances; Z79.899 Other long term (current) drug therapy; Z79.82 Long term (current) use of aspirin; Z82.49 Family history of ischemic heart disease and other diseases of the circulatory system; Z87.891 Personal history of nicotine dependence
CPT/HCPCS: 36415; 72131; 72192; 80048; 81001; 85027; 87086; 96374; 96376; 99285; G0378; G8978-GP; G8979-GP; J1170; J2405; J3490